=== PATIENT | male | born 1980 | race Hispanic/Latino ===

== ENCOUNTER 2020-10-09 01:21 | Inpatient (IN) | payer SELFPAY ==
--- NOTE | 2020-10-09 02:28 | ER ---
Nurse's Notes [facility] Name: Larissa Cantu Age: 40 yrs Sex: Male : 1980 Arrival Date: 10/09/2020 Time: 01:22 Bed 5 Private MD: Diagnosis: Cellulitis and acute lymphangitis of other parts of limb-MEDIAL LEFT LEG;SARS-associated coronavirus as the cause of diseases classified elsewhere-Covid 19 Presentation: 10/09 01:46 Chief complaint: Patient states: wound on left ankle for 2 months and has not healed. dm5 Started bleeding today after work and he was told to put sugar on it to stop the bleeding. The only thing the pt states he has put on it at home is Aloe Vera. Coronavirus screen: Client denies travel out of the [place] in the last 14 days. At this time, the client does not indicate any symptoms associated with coronavirus-19. Ebola Screen: Patient negative for fever greater than or equal to 101.5 degrees Fahrenheit, and additional compatible Ebola Virus Disease symptoms Patient denies exposure to infectious person. Patient denies travel to an Ebola-affected area in the 21 days before illness onset. No symptoms or risks identified at this time. Initial Sepsis Screen: Does the patient meet any 2 criteria? No. Patient's initial sepsis screen is negative. Does the patient have a suspected source of infection? No. Patient's initial sepsis screen is negative. Risk Assessment: Do you want to hurt yourself or someone else? Patient reports no desire to harm self or others. Onset of symptoms was July 2020. 01:46 Method Of Arrival: Ambulatory dm5 01:46 Acuity: DEON 3 dm5 Triage Assessment: 01:57 General: Appears in no apparent distress. Behavior is calm, cooperative. Pain: dm5 Complains of pain in left medial ankle. Neuro: Level of Consciousness is awake, alert, obeys commands, Oriented to person, place, time. Cardiovascular: No deficits noted. Respiratory: No deficits noted. GI: No deficits noted. No signs and/or symptoms were reported involving the gastrointestinal system. : No deficits noted. Derm: Wound noted left medial ankle Wound is appearance of shark bite, scarring noted above and below the wound. wound is approximately 3-4 inches wide. Historical: - Allergies: 01:57 No Known Allergies; dm5 - Home Meds: 01:57 None [Active]; dm5 - PMHx: 01:57 None; dm5 - PSHx: 01:57 None; dm5 - Immunization history:: Adult Immunizations up to date. - Social history:: Smoking status: Patient denies any tobacco usage or history of. Screenin:15 Abuse screen: Denies threats or abuse. Nutritional screening: No deficits noted. ea Tuberculosis screening: No symptoms or risk factors identified. Fall Risk None identified. Assessment: 02:19 General: Appears in no apparent distress. Behavior is appropriate for age. Pain: ea Complains of pain in left medial ankle. Neuro: Level of Consciousness is awake, alert, obeys commands, Oriented to person, place, time, situation. Cardiovascular: Patient's skin is warm and dry. Respiratory: Airway is patent Respiratory effort is even, unlabored, Respiratory pattern is regular, symmetrical. 02:19 Derm: Wound noted left medial ankle Wound is wound approximately 7.5 to 10 cm, ea granulation noted to bed of wound, purulent drainage and foul smell noted. Musculoskeletal: Circulation, motion, and sensation intact. Vital Signs: 02:26 BP 127 / 91; Pulse 77; Resp 18; Temp 98.3; Pulse Ox 98% on R/A; Weight 90.72 kg; Height ea 5 ft. 6 in. (167.64 cm); 02:26 Body Mass Index 32.28 (90.72 kg, 167.64 cm) ea ED Course: 01:22 Patient arrived in ED. cf2 01:37 Carlo Tejeda MD is Attending Physician. vanessa 01:53 Natividad Tatum RN is Primary Nurse. ea 01:57 Triage completed. dm5 01:57 Arm band placed on Patient placed in an exam room. dm5 02:15 Patient has correct armband on for positive identification. Bed in low position. Call ea light in reach. Side rails up X 1. 02:26 Raine Courtney MD is Hospitalizing Provider. vanessa 02:44 XRAY Chest (1 view) In Process Unspecified. EDMS 02:44 Ankle Left 3 View XRAY In Process Unspecified. EDMS 03:29 No provider procedures requiring assistance completed. Patient admitted, IV remains in ea place. Dressings: WET TO DRY TO LEFT LOWER EXTREMITY. 07:51 Primary Nurse role handed off by Natividad Tatum RN 07:51 Krystle Gibson, ALBIN is Primary Nurse. sv 09:07 Basic Metabolic Panel Sent. sv Administered Medications: 02:20 Drug: Zosyn 3.375 grams Route: IVPB; Infused Over: 60 mins; Site: right antecubital; ea 04:30 Follow up: Response: No adverse reaction; IV Status: Completed infusion ea 03:00 Drug: Tetanus-Diphtheria Toxoid Adult 0.5 ml {Journeyman Level Acoustic Analyst: [employer]. Exp: ea 12/25/2021. Lot #: [id number]. } Route: IM; Site: right deltoid; 04:00 Follow up: Response: No adverse reaction ea 03:25 Drug: NS 0.9% 1000 ml Route: IV; Rate: 1 bolus; Site: right antecubital; ea 05:18 Follow up: Response: No adverse reaction; IV Status: Completed infusion; IV Intake: ea 1000ml 03:31 Drug: NS 0.9% 1000 ml Route: IV; Rate: 125 ml/hr; Site: right antecubital; ea 05:18 Follow up: IV Status: Infusion continued upon admission ea 04:30 Drug: vancoMYCIN 1 grams Route: IVPB; Infused Over: 2 hrs; Site: right antecubital; ea 05:33 Follow up: Response: No adverse reaction; IV Status: Completed infusion; IV Intake: ea 250ml Intake: 05:18 IV: 1000ml; Total: 1000ml. ea 05:33 IV: 250ml; Total: 1250ml. ea Outcome: 02:27 Decision to Hospitalize by Provider. vanessa 03:36 Instructed on the need for admit, Demonstrated understanding of instructions. ea 03:37 Admitted to ER Hold. Please see [facility] for further documentation. ea 03:37 Condition: stable 12:33 Patient left the ED. eb Signatures: Dispatcher [employer] EDMS Sheyla Crowder RN RN Krystle Vaca, Carlo Hart RN, MD MD cha Antunez, Elena, RN RN ea Botello, Elizabeth eb Frazier, Celesta cf2 Corrections: (The following items were deleted from the chart) 05:20 10/08 23:10 Response: No adverse reaction ea ea
--- NOTE | 2020-10-09 02:28 | EDPHYS ---
Physician Documentation [facility] Name: Larissa Cantu Age: 40 yrs Sex: Male : 1980 Arrival Date: 10/09/2020 Time: 01:22 Bed 5 Private MD: HEMANT Physician Carlo Tejeda HPI: 10/09 02:21 This 40 yrs old Male presents to ER via Ambulatory with complaints of Wound vanessa Infection. Historical: - Allergies: :57 No Known Allergies; dm5 - Home Meds: : None [Active]; dm5 - PMHx: :57 None; dm5 - PSHx: :57 None; dm5 - Immunization history:: Adult Immunizations up to date. - Social history:: Smoking status: Patient denies any tobacco usage or history of. ROS: 02:22 Constitutional: Negative for fever, chills, and weight loss, Eyes: Negative for injury, vanessa pain, redness, and discharge, ENT: Negative for injury, pain, and discharge, Neck: Negative for injury, pain, and swelling, Cardiovascular: Negative for chest pain, palpitations, and edema, Respiratory: Negative for shortness of breath, cough, wheezing, and pleuritic chest pain, Abdomen/GI: Negative for abdominal pain, nausea, vomiting, diarrhea, and constipation, Back: Negative for injury and pain, : Negative for injury, bleeding, discharge, and swelling, Neuro: Negative for headache, weakness, numbness, tingling, and seizure, Psych: Negative for depression, anxiety, suicide ideation, homicidal ideation, and hallucinations, Allergy/Immunology: Negative for hives, rash, and allergies, Endocrine: Negative for neck swelling, polydipsia, polyuria, polyphagia, and marked weight changes. 02:22 MS/extremity: Positive for pain, swelling, tenderness, of the medial aspect of left calf and left medial ankle. Exam: 02:22 Constitutional: This is a well developed, well nourished patient who is awake, alert, vanessa and in no acute distress. Head/Face: Normocephalic, atraumatic. Eyes: Pupils equal round and reactive to light, extra-ocular motions intact. Lids and lashes normal. Conjunctiva and sclera are non-icteric and not injected. Cornea within normal limits. Periorbital areas with no swelling, redness, or edema. ENT: Nares patent. No nasal discharge, no septal abnormalities noted. Tympanic membranes are normal and external auditory canals are clear. Oropharynx with no redness, swelling, or masses, exudates, or evidence of obstruction, uvula midline. Mucous membranes moist. Neck: Trachea midline, no thyromegaly or masses palpated, and no cervical lymphadenopathy. Supple, full range of motion without nuchal rigidity, or vertebral point tenderness. No Meningismus. Chest/axilla: Normal chest wall appearance and motion. Nontender with no deformity. No lesions are appreciated. Cardiovascular: Regular rate and rhythm with a normal S1 and S2. No gallops, murmurs, or rubs. Normal PMI, no JVD. No pulse deficits. Respiratory: Lungs have equal breath sounds bilaterally, clear to auscultation and percussion. No rales, rhonchi or wheezes noted. No increased work of breathing, no retractions or nasal flaring. Abdomen/GI: Soft, non-tender, with normal bowel sounds. No distension or tympany. No guarding or rebound. No evidence of tenderness throughout. Back: No spinal tenderness. No costovertebral tenderness. Full range of motion. Male : Normal genitalia with no discharge or lesions. Neuro: Awake and alert, GCS 15, oriented to person, place, time, and situation. Cranial nerves II-XII grossly intact. Motor strength 5/5 in all extremities. Sensory grossly intact. Cerebellar exam normal. Normal gait. Psych: Awake, alert, with orientation to person, place and time. Behavior, mood, and affect are within normal limits. 02:22 Skin: Appearance: swelling, cellulitis, that is mild, induration, that is mild is noted, injury, 6X 8 CM NECROTIC WOUND C/W VENOUS ULCERATION. 03:38 ECG was reviewed by the Attending Physician. [facility] Vital Signs: 02:26 BP 127 / 91; Pulse 77; Resp 18; Temp 98.3; Pulse Ox 98% on R/A; Weight 90.72 kg; Height ea 5 ft. 6 in. (167.64 cm); 02:26 Body Mass Index 32.28 (90.72 kg, 167.64 cm) ea MDM: 01:37 Patient medically screened. [facility] 02:24 Differential diagnosis: abrasion. Data reviewed: vital signs, nurses notes, lab test vanessa result(s), EKG, radiologic studies. Data interpreted: monitor technician: rate is 80 beats/min, rhythm is regular. Test interpretation: by ED physician or midlevel provider: ECG, plain radiologic studies. Counseling: I had a detailed discussion with the patient and/or guardian regarding: the historical points, exam findings, and any diagnostic results supporting the discharge/admit diagnosis, lab results, radiology results, the need for further work-up and treatment in the hospital. 10/09 02:20 Order name: Basic Metabolic Panel [facility] 10/09 02:20 Order name: CBC with Diff [facility] 10/09 02:20 Order name: LFT's; Complete Time: 04:04 [facility] 10/09 02:20 Order name: Magnesium; Complete Time: 04:04 [facility] 10/09 02:20 Order name: NT PRO-BNP; Complete Time: 04:04 [facility] 10/09 02:20 Order name: PT-INR; Complete Time: 04:04 [facility] 10/09 02:20 Order name: Troponin (emerg Dept Use Only); Complete Time: 04:04 [facility] 10/09 02:22 Order name: Basic Metabolic Panel; Complete Time: 04:04 [facility] 10/09 03:32 Order name: Sedimentation Rate, [place] [facility] 10/09 03:53 Order name: SARS-COV-2 RT PCR; Complete Time: 04:04 [facility] 10/09 04:24 Order name: Basic Metabolic Panel [facility] 10/09 04:25 Order name: Basic Metabolic Panel [facility] 10/09 02:20 Order name: XRAY Chest (1 view) [facility] 10/09 02:20 Order name: EKG; Complete Time: 02:22 [facility] 10/09 02:20 Order name: Ankle Left 3 View XRAY [facility] 10/09 04:24 Order name: CONS Pharmacy Consult [facility] 10/09 04:24 Order name: CONS Pharmacy Consult [facility] 10/09 04:25 Order name: CBC with Automated Diff [facility] 10/09 04:25 Order name: CBC with Automated Diff [facility] 10/09 04:25 Order name: Hemoglobin A1c [facility] 10/09 04:25 Order name: Hemoglobin A1c [facility] 10/09 04:25 Order name: Lipid Profile [facility] 10/09 04:25 Order name: Lipid Profile [facility] 10/09 02:20 Order name: Cardiac monitoring; Complete Time: 05: vanessa 10/09 02:20 Order name: EKG - Nurse/Tech; Complete Time: : vanessa 10/09 02:20 Order name: IV Saline Lock; Complete Time: 03: vanessa 10/09 02:20 Order name: Labs collected and sent; Complete Time: 03: vanessa 10/09 02:20 Order name: O2 Per Protocol; Complete Time: 03: vanessa 10/09 02:20 Order name: O2 Sat Monitoring; Complete Time: 03: vanessa 10/09 02:20 Order name: Wound Care: WET TO DRY; Complete Time: 03: vanessa 10/09 04:24 Order name: CONS Physician Consult EDMS 10/09 04:24 Order name: CONS [facility] Cons; Complete Time: 09: EDMS 10/09 04:24 Order name: Regular; Complete Time: 09:07 EDMS EC:38 Rate is 73 beats/min. Rhythm is regular. QRS [place] is Normal. ND interval is normal. QRS vanessa interval is normal. QT interval is normal. No Q waves. T waves are Normal. No ST changes noted. Clinical impression: Normal ECG and No evidence of ischemia. Interpreted by me. Reviewed by me. Administered Medications: 02:20 Drug: Zosyn 3.375 grams Route: IVPB; Infused Over: 60 mins; Site: right antecubital; ea 04:30 Follow up: Response: No adverse reaction; IV Status: Completed infusion ea 03:00 Drug: Tetanus-Diphtheria Toxoid Adult 0.5 ml {Care Assistant: [employer]. Exp: ea 12/25/2021. Lot #: [id number]. } Route: IM; Site: right deltoid; 04:00 Follow up: Response: No adverse reaction ea 03:25 Drug: NS 0.9% 1000 ml Route: IV; Rate: 1 bolus; Site: right antecubital; ea 05:18 Follow up: Response: No adverse reaction; IV Status: Completed infusion; IV Intake: ea 1000ml 03:31 Drug: NS 0.9% 1000 ml Route: IV; Rate: 125 ml/hr; Site: right antecubital; ea 05:18 Follow up: IV Status: Infusion continued upon admission ea 04:30 Drug: vancoMYCIN 1 grams Route: IVPB; Infused Over: 2 hrs; Site: right antecubital; ea 05:33 Follow up: Response: No adverse reaction; IV Status: Completed infusion; IV Intake: ea 250ml Disposition: 10/09/20 02:27 Hospitalization ordered by Raine Courtney for Inpatient Admission. Preliminary diagnosis are Cellulitis and acute lymphangitis of other parts of limb - MEDIAL LEFT LEG, SARS-associated coronavirus as the cause of diseases classified elsewhere - Covid 19. - Bed requested for [facility] ER HOLD. - Status is Inpatient Admission. eb - Condition is Fair. - Problem is new. - Symptoms have improved. Signatures: Dispatcher [employer] EDMS Sheyla Crowder RN RN dmReba Washburn RN Carlo Dos Santos MD MD cha Antunez, Elena, RN RN ea Botello, Elizabeth eb Corrections: (The following items were deleted from the chart) 02:31 02:27 Hospitalization Ordered by Raine Courtney MD for Inpatient Admission. Preliminary diagnosis is Cellulitis and acute lymphangitis of other parts of limb - MEDIAL LEFT LEG; Type 2 diabetes mellitus. Bed requested for Telemetry/MedSurg (Inpatient). Status is Inpatient Admission. Condition is Fair. Problem is new. Symptoms have improved. [facility] 03:02 02:30 CORONAVIRUS+MR.LAB.BRZ ordered. [facility] EDMS 03:32 02:22 [place] SEDRATE+H.LAB.BRZ ordered. [facility] EDMS 03:53 02:31 10/09/2020 02:27 Hospitalization Ordered by Raine Courtney MD for Inpatient vanessa Admission. Preliminary diagnosis is Cellulitis and acute lymphangitis of other parts of limb - MEDIAL LEFT LEG; Type 2 diabetes mellitus. Bed requested for [facility] ER HOLD. Status is Inpatient Admission. Condition is Fair. Problem is new. Symptoms have improved. 04:05 03:53 10/09/2020 02:27 Hospitalization Ordered by Raine Courtney MD for Inpatient vanessa Admission. Preliminary diagnosis is Cellulitis and acute lymphangitis of other parts of limb - MEDIAL LEFT LEG; Type 2 diabetes mellitus; SARS-associated coronavirus as the cause of diseases classified elsewhere - Covid 19. Bed requested for [facility] ER HOLD. Status is Inpatient Admission. Condition is Fair. Problem is new. Symptoms have improved. vanessa 12:33 04:05 10/09/2020 02:27 Hospitalization Ordered by Raine Courtney MD for Inpatient eb Admission. Preliminary diagnosis is Cellulitis and acute lymphangitis of other parts of limb - MEDIAL LEFT LEG; SARS-associated coronavirus as the cause of diseases classified elsewhere - Covid 19. Bed requested for [facility] ER HOLD. Status is Inpatient Admission. Condition is Fair. Problem is new. Symptoms have improved. vanessa
[2020-10-09] MEDS ORDERED: NA CHLORIDE 0.9% 250 ML ONE (02:48)
[2020-10-09] MEDS ORDERED: VANCOMYCIN 1 GM/VIAL ONE (02:48)
[2020-10-09] MEDS ORDERED: NA CHLORIDE 0.9% 1,000 ML ONE ×2 (02:48→03:49)
[2020-10-09] MEDS ORDERED: TETANUS & DIPHTHERIA TOX,ADULT 0.5 ML VIAL ONE (02:49)
[2020-10-09] MEDS ORDERED: PIPER/TAZO/NS 3.375gm 3.375 GM/100 ML BAG ONE (02:49)
[2020-10-09 03:50] LABS: Absolute Lymphocytes (CBC) 1.7 K/uL (0.7-4.9); Basophils % 0.5 % (0-1.3); Hematocrit 41.5 % (39.6-49.0); Lymphocytes % 20.4 % (15.3-44.8); MPV 7.6 fL (7.6-11.3); RBC Red Blood Cell Count 4.51 M/uL (4.33-5.43)
[2020-10-09 03:51] LABS: Protime INR 0.92
[2020-10-09 04:04] LABS: ALT/SGPT 58 U/L (12-78); AST/SGOT 24 U/L (15-37); Albumin 3.4 g/dL (3.4-5.0); Alkaline Phosphatase 90 U/L (45-117); BUN Blood Urea Nitrogen 13 mg/dL (7-18); Bicarbonate 27 mmol/L (21-32); Bilirubin Direct 0.1 mg/dL (0-0.2); Bilirubin Total 0.6 mg/dL (0.2-1.0); Glucose Level 92 mg/dL (74-106); Magnesium 2.2 mg/dL (1.8-2.4); NT PRO-BNP 18 pg/mL (<125); Potassium 3.7 mmol/L (3.5-5.1); Sodium Level 142 mmol/L (136-145); Troponin (Emerg Dept Use Only) < 0.02 ng/mL (0.0-0.045)
--- NOTE | 2020-10-09 04:29 | P.HP ---
Certification for Inpatient Patient admitted to: Inpatient With expected LOS: >2 Midnights Patient will require the following post-hospital care: None Practitioner: I am a practitioner with admitting privileges, knowledge of patient current condition, hospital course, and medical plan of care. Services: Services provided to patient in accordance with Admission requirements found in Title 42 Section 412.3 of the Code of Federal Regulations <Kev Domingo - Last Filed: 10/09/20 04:23> Patient History Date of Service: 10/09/20 Primary Care Provider: none Reason for admission: cellulitis History of Present Illness: Mr. Cantu is a 40 yo M with no PMH here today for cellulitis on the left medial ankle present for 3 months. He reports he has been managing the wound at home with saline washes, diclofenac gel, and ointment, but came to the ED today due to sudden increase in bleeding. He reports 9/10 pain to the leg with no decrease in ROM or sensation. Denies all systemic symptoms. This is his third episode of cellulitis in the last 8 years in the same leg. He denies cigarette smoking and history of diabetes. Vitals stable. Na 142, K 3.7, Cl 111, HCO3 27, BUN 13, Cr 0.55, Glu 92. Hb/Hct 14/41.5, WBC 8.1, plt 321. There is a weeping necrotic wound 6x8cm in size on left leg with underlying chronic venous stasis. Home medications list reviewed: No - Past Medical/Surgical History Has patient received pneumonia vaccine in the past: No Diabetic: No Past Medical History: Patient denies medical history Past Surgical History: Patient denies surgical history - Family History Family History: Reviewed- Non-Contributory - Social History Smoking Status: Never smoker Counseled patient to stop smoking for: less than 10 minutes Smoking therapy provided: No Alcohol use: Yes CD- Drugs: No Caffeine use: Yes Place of Residence: Home <Kev Domingo - Last Filed: 10/09/20 04:23> Date of Service: 10/09/20 <Raine Courtney - Last Filed: 10/13/20 01:02> Review of Systems General: Unremarkable Eyes: Unremarkable ENT: Unremarkable Respiratory: Unremarkable Cardiovascular: Unremarkable Gastrointestinal: Unremarkable Genitourinary: Unremarkable Musculoskeletal: Foot Pain, As per HPI Integumentary: Lesions, As per HPI Neurological: Unremarkable Lymphatics: Unremarkable <Kev Domingo - Last Filed: 10/09/20 04:23> Physical Examination - Vital Signs Temperature: 98.3 F Blood Pressure: 127/91 Pulse: 77 Respirations: 18 Pulse Ox (%): 98 - Physical Exam General: Alert, In no apparent distress, Oriented x3, Cooperative HEENT: Atraumatic, Normocephalic, PERRLA, Mucous membr. moist/pink, EOMI Neck: Supple, JVD not distended, No Thyromegaly, No LAD Respiratory: Clear to auscultation bilaterally, Normal air movement Cardiovascular: No edema, Normal pulses, Regular rate/rhythm, Normal S1 S2, No gallops, No rubs, No murmurs, Other (pulses intact in both feet) Capillary refill: <2 Seconds Gastrointestinal: Normal bowel sounds, Soft and benign, Non-distended, No ascites, No tenderness, No masses, No rebound, No guarding Musculoskeletal: No clubbing, No swelling, No contractures, No erythema, No warmth, Tenderness, Other (ROM intact in both feet) Integumentary: No rashes, No erythema, No warmth, No cyanosis, Skin breakdown, Skin lesion, Tenderness/swelling, Venous stasis ulcer, Other (6x8cm necrotic wound revealing subcutaneous tissue with underlying venous stasis) Neurological: Normal speech, Normal strength at 5/5 x4 extr, Normal tone, Sensation intact, Cranial nerves 3-12 intact, Normal affect, Other (sensation intact in both feet) Lymphatics: No axilla or inguinal lymphadenopathy - Studies Laboratory Data (last 24 hrs) 10/09/20 03:18: PT 10.9, INR 0.92 10/09/20 03:18: WBC 8.10, Hgb 14.0, Hct 41.5, Plt Count 321 10/09/20 03:18: Sodium 142, Potassium 3.7, BUN 13, Creatinine 0.55, Glucose 92, Magnesium 2.2, Total Bilirubin 0.6, AST 24, ALT 58, Alkaline Phosphatase 90 <Kev Domingo - Last Filed: 10/09/20 04:23> Assessment and Plan - Problems (Diagnosis) (1) Cellulitis of left ankle Status: Acute Plan: vancomycin 1g q12h and cefepime 1g q12h - surgery consult placed - wound care consult placed - morphine 2mg q4h PRN for pain management - pulses, sensation, and ROM intact on initial assessment. continue to monitor (2) Open wound of ankle with complication Status: Acute Plan: -wound care and general surgery consulted. continue to monitor. Qualifiers: Encounter type: initial encounter Laterality: left Qualified Code(s): S91.002A - Unspecified open wound, left ankle, initial encounter (3) Venous stasis Status: Acute Plan: - wound care consult placed, see above for further plan (4) COVID-19 Onset Date: ~10/09/20 Status: Acute Plan: incidental finding of +COVID result, asymptomatic, 98% on room air Discharge Plan: Home Plan to discharge in: Greater than 2 days - Advance Directives Does patient have a Living Will: No Does patient have a Durable POA for Healthcare: No - Code Status/Comfort Care Code Status Assessed: Yes Code Status: Full Code Critical Care: No Time Spent Managing Pts Care (In Minutes): 70 <Kev Domingo - Last Filed: 10/09/20 04:23> Date of Service: 10/09/20 Chart has been reviewed. Events noted as mentioned above. Patient will be admitted to the hospital for further evaluation. <Raine Courtney - Last Filed: 10/13/20 01:02>
[2020-10-09 04:34] VITALS: TEMP 98.3
[2020-10-09 05:33] VITALS: BMI 32.3
[2020-10-09] MEDS ORDERED: INFLUENZA VACCINE (for 3y+) 0.5 ML DOSE IMVAC ONE (09:00)
[2020-10-09 09:44] VITALS: BP 124/80
--- NOTE | 2020-10-09 09:52 | RAD REPORT ---
EXAM DESCRIPTION: RAD - Chest Single View - 10/09/2020 2:44 am CLINICAL HISTORY: COUGH COMPARISON: None TECHNIQUE: AP portable chest image was obtained 10/09/2020 2:44 am . FINDINGS: Lung volumes are low. No acute or focal lung parenchymal process seen. No failure or volum e overload. Lung markings are not outside of normal range. Heart and vasculature are normal. No measu rable pleural effusion and no pneumothorax. No acute bony abnormality seen. No acute aortic findings suspected. IMPRESSION: No acute cardiopulmonary process.
--- NOTE | 2020-10-09 09:57 | RAD REPORT ---
EXAM DESCRIPTION: RAD - Ankle Left 3 View - 10/09/2020 2:44 am CLINICAL HISTORY: Pain;Swelling COMPARISON: Ankle Left 3 View dated 04/15/2013 FINDINGS: No fracture, dislocation or periosteal reaction. No joint effusion seen. No joint space na rrowing. No findings of osteomyelitis. Osteomyelitis can exist prior to radiographic bone destruction . Large posteromedial soft tissue wound is present along the superior margin of the ankle joint. No a ir in the soft tissues seen. No foreign body identified. IMPRESSION: Large posteromedial left ankle soft tissue wound with no foreign body or abnormal soft t issue air. No acute bone finding. Osteomyelitis can exist prior to radiographic bone destruction.
[2020-10-09 12:39] VITALS: O2SAT 98
--- NOTE | 2020-10-09 12:56 | CON ---
Date of Consultation: 10/09/2020 Brief History Of Present Illness: The patient is a 40-year-old male with no past medical history and no primary care physician who has not had seen a primary care physician in multiple years, who is here complaining of a 3 month history of left medial ankle wound. He states that this wound has been going on for some time. He has never sought any treatment for it. He works at the [email or web address] and wears boots that rub on it continuously. He noticed recently it continued to bleed and was getting larger and larger. He had been using saline washes and ointment, but came to the ER due to the increase in bleeding. The pain was 9/10 when he came here. He has not had similar episodes before in the past, but continued with resection of the wound and bleeding, but has had multiple issues with the wound over the past 8 years in the same area. He denies diabetes or any medical issues. He does not smoke cigarettes. Past Medical History: Denies. Past Surgical History: Denies. Family History: Reviewed, noncontributory. Social History: He denies smoking, alcohol, or recreational drug use. His 10- point review of systems other than HPI, denies. Physical Examination: Vital Signs: At the time of my examination his temperature is 98.3, pulse 77, respiratory rate is 18, SpO2 98% on room air. General: He is awake, alert, oriented. Psychiatric: Appropriate. Conversive. HEENT: Normocephalic. His sclerae are anicteric. His mucous membranes is moist, oropharynx clear. Neck: Supple. No JVD. Chest: Normal expansion and excursion. Cardiovascular: Regular rate and rhythm. Pulmonary: Clear to auscultation bilaterally. Focused examination of the left lower extremity on the medial aspect, there is a 6 x 8 cm area of necrotic wound with discoloration in the surrounding skin consistent with venous stasis ulcers. It is dressed. There was no bleeding at this time. Wounds were taken down completely. There is some sloughing and fibrinous exudate over this area, but no drainable collections. Laboratory Data: He had a laboratory exam reveals a white blood count 8.1, hemoglobin is 14.0, hematocrit 41.5, platelet count is 321. His neutrophils are 67%, his PT 10.9, INR 0.92. His sodium 142, potassium 3.7, chloride 111, carbon dioxide is 27, BUN 13, creatinine 0.5, glucose is 92. His total bilirubin 0.6, direct component 0.1, AST 24, ALT 58, alkaline phosphatase 90. His COVID was positive. He had a chest x-ray officially read as no acute cardiopulmonary process. He had an ankle x-ray of the left ankle, which was officially read as large posterior medial left ankle soft tissue wound with no foreign body or abnormal soft tissue air. No acute bony findings of radiographic bone destruction. Assessment And Plan: This is a 40-year-old male with likely venous stasis wound of the left lower extremity. 1. IV fluid hydration. 2. Antibiotic coverage. 3. I believe the patient could be taken care of as an outpatient given his concomitant medical issues. I have advised that he needs to get a primary care physician to establish care and look into other possible medical comorbidities, which are at this point, undiagnosed. 4. I have recommended wound care with Dakin's and Santyl 0.25% daily dressing changes. A wound care form has been given to the patient explaining the specific recommendations on wound care, which should be performed daily and he is instructed to follow up with me within 1 week. I have explained the risks, benefits, and alternatives of the above stated plan. The patient agrees to proceed as indicated. TRICIA/ERON Voice ID: [id number] Report ID: [id number] MTDD
--- NOTE | 2020-10-09 14:23 | EKG ---
Test Date: 2020-10-09 Test Time: 03:34:06 [employer] Operations Intelligence Officer: HAI MEASUREMENT RESULTS: Intervals: Rate: 73 SC: 148 QRSD: 90 QT: 394 QTc: 434 Shirley: P: 41 SC: 148 QRS: 5 T: 22 INTERPRETIVE STATEMENTS: Normal sinus rhythm Normal ECG No previous ECG available for comparison Electronically Signed On 10-09-20 14:22:34 [employer] by Armando Dupree
[2020-10-09] MEDS ORDERED: VANCOMYCIN/NS 1 gm 1 GM/250 ML BAG IVPB SCH (16:00)
[2020-10-09] MEDS ORDERED: MORPHINE 2 MG/ML SYR IV PRN (16:00)
[2020-10-09] MEDS ORDERED: CEFEPIME 1 GM/10 ML SYR IV SCH (16:00)
[2020-10-09] MEDS ORDERED: ENOXAPARIN 40 MG/0.4 ML SQ SCH (17:00)
[2020-10-09] MEDS ORDERED: SODIUM HYPOCHLORITE 0.25% 473 ML TOP SCH (21:00)
--- NOTE | 2020-10-13 01:00 | P.DS ---
Discharge Date: 10/09/20 Primary Care Provider: none Disposition: ROUTINE DISCHARGE Discharge Condition: GOOD Reason for Admission: cellulitis Consultations: General surgeon Brief History of Present Illness: Patient is a 40-year-old gentleman who came into the hospital with an open wound to the left ankle. Patient was seen by general surgery in the Emergency room . Decision was made to proceed with outpatient followup. Hospital Course: Patient was seen in the hospital for observation. Wound was cleaned with Dakin's Solution. Continue with oral antibiotic therapy and outpatient wound healing care consultation. General surgery will follow the patient in wound healing center. Vital Signs/Physical Exam: Temp Pulse Resp BP Pulse Ox 98.3 F 61 14 124/80 95 10/09/20 04:41 10/09/20 08:00 10/09/20 08:00 10/09/20 08:00 10/09/20 08:00 General: Alert, In no apparent distress, Oriented x3 Laboratory Data at Discharge: WBC 8.10 K/uL (4.3-10.9) 10/09/20 03:18 Hgb 14.0 g/dL (13.6-17.9) 10/09/20 03:18 Hct 41.5 % (39.6-49.0) 10/09/20 03:18 Plt Count 321 K/uL (152-406) 10/09/20 03:18 PT 10.9 SECONDS (9.5-12.5) 10/09/20 03:18 INR 0.92 10/09/20 03:18 Sodium 142 mmol/L (136-145) 10/09/20 03:18 Potassium 3.7 mmol/L (3.5-5.1) 10/09/20 03:18 BUN 13 mg/dL (7-18) 10/09/20 03:18 Creatinine 0.55 mg/dL (0.55-1.3) 10/09/20 03:18 Glucose 92 mg/dL (74-106) 10/09/20 03:18 Magnesium 2.2 mg/dL (1.8-2.4) 10/09/20 03:18 Total Bilirubin 0.6 mg/dL (0.2-1.0) 10/09/20 03:18 AST 24 U/L (15-37) 10/09/20 03:18 ALT 58 U/L (12-78) 10/09/20 03:18 Alkaline Phosphatase 90 U/L (45-117) 10/09/20 03:18 Home Medications: Ciprofloxacin HCl [Cipro 500 MG Tablet] 500 mg PO BID #20 tab 10/09/20 Codeine/APAP [Tylenol W/Codeine #3 tab] 1 tab PO Q6HP PRN #30 tab 10/09/20 Smz./Tmp. [Bactrim Ds 800 MG/160 MG] 1 tab PO BID #20 tab 10/09/20 Sodium Hypochlorite [Dakin's] 20 ml MC DAILY #473 ml 10/09/20 New Medications: Smz./Tmp. [Bactrim Ds 800 MG/160 MG] 1 tab PO BID #20 tab Ciprofloxacin HCl [Cipro 500 MG Tablet] 500 mg PO BID #20 tab Sodium Hypochlorite [Dakin's] 20 ml MC DAILY #473 ml Codeine/APAP [Tylenol W/Codeine #3 tab] 1 tab PO Q6HP PRN #30 tab PRN Reason: Pain Physician Discharge Instructions: PROBLEM: (list out Acute Problems for the Current visit) GOAL: Clear understanding of disease process INSTRUCTIONS: OK TO DC IV AND DC HOME FOLLOW-UP WITH PCP IN 1-2 WEEKS CALL ME AT [phone] IF ANY QUESTIONS REGARDING HOSPITAL STAY RETURN TO THE ER IF SYMPTOMS WORSENS FOLLOW-UP WITH WOUND HEALING IN 1-2 WEEKS FOLLOW-UP WITH DR. CREWS IN 1-2 WEEKS CLEAN WITH DAKON'S SOLUTION INSTRUCTED BY DR. CREWS ONCE DAILY. On Sunday call Dr Crews's office to get a coupon for the Dakin's solution Diet: ADA Activity: Fall precautions DME DME: Date Ordered: Name of Company: [employer] Influenza Vaccine Indicated: Yes Influenza Vaccine Given: Date Given: Pneumonia Vaccine Indicated: No Pneumonia Vaccine Given: Date Given: Diet: ADA Activity: Fall precautions Followup: Bernard Crews MD [ACTIVE - CAN ADMIT] - NONE,NONE [Primary Care Provider] - Time spent managing pt's care (in minutes): 35
== END 2020-10-09 12:37 | disposition home or self-care (01) | DRG 602 ==
LOC: ER 01:21 → ERHOLD 05:28
PROVIDERS: ADMIT Hospitalist; ATTEND Hospitalist
DX: L03.116 Cellulitis of left lower limb (principal); U07.1 COVID-19; L97.829 Non-pressure chronic ulcer of other part of left lower leg with unspecified severity; S91.002A Unspecified open wound, left ankle, initial encounter; I83.028 Varicose veins of left lower extremity with ulcer other part of lower leg
CPT/HCPCS: 36415; 71045; 80048; 80076; 83735; 83880; 84484; 85025; 85610; 85652; 90471; 90714; 93005; 96365; 96366; 96367; 99285; J2543; J3370; J7030; J7050; U0003